=== PATIENT | female | born 1955 | race Caucasian/White ===

== ENCOUNTER 2019-05-21 10:35 | Emergency (ER) | payer BC ==
[~2019-05-21] VITALS: Ht 160 cm; Wt 94.1 kg
[2019-05-21] MEDS ORDERED: ATEN25TA PO (10:50)
[2019-05-21] MEDS ORDERED: LEVO50TA5 PO (10:50)
[2019-05-21 11:06] LABS: BASO % 0.5 % (0.0-1.0); EOS # 0.1 10^3/uL (0.0-0.5); EOS % 1.4 % (0.0-3.0); HEMATOCRIT 44.4 % (36.0-47.0); HEMOGLOBIN 14.4 g/dl (12.0-15.5); LYMPH # 1.4 10^3/uL (1.5-5.0); LYMPH % 17.7 % (24.0-44.0); MEAN CORPUSCULAR HEMOGLOBIN 30.5 pg (27.0-33.0); MEAN CORPUSCULAR HGB CONC 32.4 g/dl (32.0-36.5); MEAN CORPUSCULAR VOLUME 94.1 fl (80.0-96.0); MONO # 0.4 10^3/uL (0.0-0.8); MONO % 5.3 % (0.0-5.0); NEUTROPHILS # 5.9 10^3/uL (1.5-8.5); NEUTROPHILS % 74.7 % (36.0-66.0); PLATELET COUNT, AUTOMATED 195 10^3/uL (150-450); RED BLOOD COUNT 4.72 10^6/uL (4.00-5.40); WHITE BLOOD COUNT 7.9 10^3/uL (4.0-10.0)
[2019-05-21 11:16] LABS: PROTHROMBIN TIME 12.9 SECONDS (11.8-14.0)
[2019-05-21 11:32] LABS: BLOOD UREA NITROGEN 11 MG/DL (7-18); CALCIUM LEVEL 9.7 MG/DL (8.8-10.2); CARBON DIOXIDE LEVEL 29 MEQ/L (21-32); CHLORIDE LEVEL 101 MEQ/L (98-107); CK-MB VALUE MASS 3.3 NG/ML (<3.6); CPK CREATINE PHOSPHOKINASE 132 U/L (26-192); CREATININE FOR GFR 0.77 MG/DL (0.55-1.30); GLOMERULAR FILTRATION RATE > 60.0 (>45); GLUCOSE, FASTING 105 MG/DL (70-100); POTASSIUM SERUM 4.2 MEQ/L (3.5-5.1); SODIUM LEVEL 138 MEQ/L (136-145); TROPONIN I < 0.02 NG/ML (< 0.10)
--- NOTE | 2019-05-21 11:50 | REP ---
CT BRAIN WITHOUT IV CONTRAST: CT brain performed without IV contrast. Ventricles are normal in size and position with no midline shift or mass effect. Serrano-white differentiation is well maintained. There is no acute intracranial hemorrhage. There is no extra-axial fluid collection. There are minor vascular calcifications in the carotid siphons. IMPRESSION: No acute findings. No evidence of acute intracranial hemorrhage, midline shift, or mass effect. Electronically Signed by Roland Serrano MD 05/21/2019 02:37 P
[2019-05-21] MEDS ORDERED: ISOVUE-370 76% 100ML VIAL (Q9967) As Ordered ONE (13:13)
[2019-05-21] MEDS ORDERED: ATENOLOL 25 MG TAB PO ONE (13:15)
[2019-05-21] MEDS ORDERED: CLOPIDOGREL 75 MG TAB PO ONE (13:15)
[2019-05-21 13:18] VITALS: BP 195/81
[2019-05-21] MEDS ORDERED: ATEN50TA2 PO (13:22)
--- NOTE | 2019-05-21 13:36 | REP ---
MRI BRAIN: Multiple sequences obtained in the axial and saggital planes. Ventricles are normal in size and position with no midline shift or mass effect. There is no herniation. On the diffusion images, there are heterogeneous foci of increased signal in the posterior left parietal region in both the white matter and serrano matter, consistent with an area of acute infarct. More anterior in the left parietal region at the serrano-white junction, there is a small lacunar infarct. This is also acute. A small focus of gliosis is seen in the right parietal region somewhat peripherally. No other abnormal signal is seen in the brain, brainstem, or cerebellum. Seventh and eighth cranial nerve complexes appear unremarkable. IMPRESSION: Heterogeneous area of acute infarct in the posterior left parietal white matter and serrano matter. There is an acute lacunar infarct in the anterior left parietal region. Etiology may be watershed infarcts. Electronically Signed by Roland Serrano MD 05/21/2019 02:39 P
--- NOTE | 2019-05-21 13:45 | REP ---
MRA BRAIN: MRA brain is performed utilizing 3D [id number] imaging with MIP reconstructions. 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 Left middle cerebral artery is diffusely mildly thin with moderate focal stenosis of the more distal aspect of the middle cerebral artery in the region of the sylvian fissure extending for a length of 4 mm. The more peripheral branches of the left middle cerebral artery are diffusely attenuated. Right internal carotid artery is patent. Right middle cerebral artery is widely patent. Anterior communicating arteries are patent bilaterally. There is probably a small left posterior communicating artery. I do not see a right posterior communicating artery. Vertebral and basilar arteries are widely patent. Posterior cerebral arteries are widely patent. I see no aneurysm or AVM. 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 Anterior communicating arteries are patent. There may be a tiny left posterior communicating artery. There is mild diffuse thinning of the left middle cerebral artery with moderate stenosis of the distal aspect in the region of the sylvian fissure. The more peripheral branches of left middle cerebral artery are attenuated. Findings were discussed with Dr. Snyder at the time of the exam at approximately 12:45 p.m., 05/21/2019. Electronically Signed by Roland Serrano MD 05/21/2019 02:40 P
--- NOTE | 2019-05-21 14:19 | REP ---
CT ANGIOGRAM BRAIN: CT angiogram brain performed following the intravenous administration of 100 mL of Isovue-270. Saggital, coronal, and 3D MIP reconstruction images are performed. There is occlusion of the cervical portion of the left internal carotid artery. Superior extent of the occlusion is just proximal to the origin of the left ophthalmic artery. The distal end of the left internal carotid artery intracranial portion demonstrates mild to moderate diffuse narrowing. There is mild diffuse narrowing of the left middle cerebral artery. Anterior communicating arteries are patent as are the anterior cerebral arteries. There may be a tiny left posterior communicating artery. Vertebral and basilar arteries are widely patent. Posterior cerebral arteries are patent. IMPRESSION: Occlusion left internal carotid artery, superior extent is just proximal to the origin of the left ophthalmic artery. The more distal left internal carotid artery intracranial portion demonstrates mild to moderate diffuse narrowing. There is mild diffuse narrowing of the left middle cerebral artery. Electronically Signed by Roland Serrano MD 05/21/2019 02:41 P
--- NOTE | 2019-05-21 14:32 | REP ---
CT ANGIOGRAM OF THE NECK: CT angiogram neck performed following the intravenous administration of 100 mL of Isovue-370. Saggital, coronal, and 3D MIP reconstruction images are performed. There is mild atherosclerotic calcification of the aortic arch. Innominate artery demonstrates mild plaquing and narrowing. There is moderate plaquing and narrowing at the origin of the right vertebral artery. There is mild narrowing of the proximal right subclavian artery. The right carotid bulb and proximal internal carotid artery demonstrate moderate narrowing without severe stenosis. Left vertebral artery is patent. Left common carotid artery is patent, but there is significant plaquing in the carotid bulb with occlusion at the origin of the left internal carotid artery. The very distal aspect of the left internal carotid artery intracranial portion does demonstrate flow just inferior to the origin of the left ophthalmic artery with moderate diffuse narrowing of the distal end of the intracranial left ICA. There is moderate narrowing at the origin of left external carotid artery. Left subclavian artery demonstrates mild narrowing and plaquing proximally. IMPRESSION: There is occlusion at the origin of the left internal carotid artery extending to the intracranial portion of the left internal carotid artery just proximal to the origin of the left ophthalmic artery. Electronically Signed by Roland Serrano MD 05/21/2019 02:42 P
[2019-05-21 16:03] VITALS: BP 177/82
--- NOTE | 2019-05-22 20:00 | ECGEPIP ---
[facility] - ED Test Date: 2019-05-21 Pat Name: STAR LEMUS Department: Room: - Gender: Female [employer]: : 1955 Requested By: Kristel Lynn Order Number: [id number] Reading MD: Gualberto Malcolm Measurements Intervals Rice Rate: 60 P: -14 OH: 115 QRS: 30 QRSD: 94 T: 39 QT: 435 QTc: 435 Interpretive Statements SINUS RHYTHM WITH SHORT OH INTERVAL NONSPECIFIC ST T WAVE CHANGES NO PRIOR ECG FOR COMPARISON Electronically Signed on 05-22-2019 19:59:54 EDT by Gualberto Malcolm
== END 2019-05-21 16:06 | disposition short-term general hospital (02) ==
LOC: M ED 10:35
DX: I63.9 Cerebral infarction, unspecified (principal); I10 Essential (primary) hypertension; E03.9 Hypothyroidism, unspecified; G89.29 Other chronic pain; M54.6 Pain in thoracic spine; M54.2 Cervicalgia; Z79.890 Hormone replacement therapy; Z79.82 Long term (current) use of aspirin; Z88.0 Allergy status to penicillin; Z87.891 Personal history of nicotine dependence
CPT/HCPCS: 36415; 70450; 70496; 70498; 70544; 70551; 80048; 82550; 82553; 84484; 85025; 85610; 93005; 93041; 94760; 99291; Q9967

== ENCOUNTER → 2020-10-01 | Outpatient (REF) | payer MEDICARE ==
[~2020-10-01] MED LIST: ATEN25TA PO; ATEN50TA2 PO; LEVO50TA5 PO
== END ==
LOC: M WUC 15:44
PROVIDERS: ATTEND Physician Assistant
DX: R30.0 Dysuria (principal)

== ENCOUNTER → 2021-03-11 | Outpatient (CLI) | payer MEDICARE ==
[~2021-03-11] MED LIST changes: +LEVO100T5 PO; +PEPC1TAB5 PO; +PLAV1TAB2 PO; +PRAV40TA2 PO
--- NOTE | 2021-03-11 16:07 | RADONC.CN ---
Radiation Oncology Hx/Consult Radiation Oncology Consult Date of Service: Mar 11, 2021 Pt Identifier Shalini Solano is a 65 year old female with a history of metastatic bladder cancer to liver and bone. She is currently receiving doublet chemotherapy with Dr. Cohen at [facility] and is seen today for consideration of palliative RT to her right acetabulum/ischium metastasis which has been causing her pain. Diagnosis/Treatment History Oncologic History Patient presented in October 2020 with gross hematuria and underwent cystoscopy wh ich revealed ureteral obstruction and a nephrostomy tube was placed. Biopsies were positive for high grade urothelial cancer. Patient saw Dr. Garcia @ [facility] who proceeded with cystectomy without neoadjuvant chemotherapy. This was done on 11/22/20 which showed extensive cancer [id number] with positive margin. She was referred to [facility] oncology for consideration of adjuvant therapy. PET- CT on 01/10/21 showed diffuse metastases in the liver and numerous bone metastases including the right acetabulum and ischium and several thoracic vertebral bodies as well as likely persistent local tumor deposits in the cystectomy bed. Started gemcitabine/cisplatin in January 2021. Interval History Reports that since the start of chemotherapy her right hip/groin pain has improved from 10/10 constant, impairing mobility, to 3-4/10 allowing for ambulation, occasional flares to 5/10. She has been tolerating chemotherapy with only mild fatigue, some hair loss and minimal nausea. She has tended toward constipation in recent weeks. She has been using miralax and suppositories as needed with good effect. She has concerns today about her recently placed mediport incision taking a long time to heal. She worries it may be infected. Has been covering with a bandaid and using neosporin on it. Denies fevers, chills, purulent drainage from the site. Past Medical History: HTN Hypothyroid TIA (2019) Past Surgical History: Hysterectomy Cystectomy Tubal ligation Family History: Mother lung cancer Maternal grandmother colon cancer Social History: 60 pack year fromer smoker quit 2006 Never drinker Allergies / Meds Allergies: Coded Allergies: Penicillins (Verified Allergy, Unknown, 05/21/19) Home Meds Reported Medications Levothyroxine Sodium (LEVOTHYROXINE SODIUM) 100 Mcg Tablet, 1 TAB PO DAILY for 30 Days, #30 TAB 03/11/21 Famotidine (Pepcid) 20 Mg Tablet, 1 TAB PO BID for 30 Days, #60 TAB 03/11/21 Pravastatin Sodium (Pravastatin Sodium) 40 Mg Tablet, 1 TAB PO DAILY for 30 Days, #30 TAB 03/11/21 Clopidogrel Bisulfate (Plavix) 75 Mg Tablet, 1 TAB PO DAILY for 30 Days, #30 TAB 03/11/21 Atenolol (Atenolol) 50 Mg Tablet, 25 MG PO BID 05/21/19 Discontinued Reported Medications Levothyroxine Sodium (LEVOTHYROXINE SODIUM) 50 Mcg Tablet, 50 MCG PO DAILY 05/21/19 Review of Systems Constitutional: Reports: Fatigue; Denies: Chills, Fever, Weight Loss Eyes: Denies: Pain HEENT: Denies: Head Aches Skin: Denies: Rash Pulmonary: Denies: Dyspnea, Cough Cardiovascular: Denies: Chest Pain Gastrointestinal: Denies: Nausea, Vomiting, Abdominal Pain Hematologic: Denies: Bruising, Bleeding Excessively Endocrine: Denies: Cold Intolerance Musculoskeletal: Reports: Leg pain; Denies: Neck pain, Back pain Neurological: Denies: Weakness, Numbness Psych: Reports: Mood Normal Vital Signs Wt 178 lbs T 96.8 P 70 RR 20 BP 101/68 O2 97% Pain 3 Fatigue 5 General Exam: Alert, Cooperative, No Acute Distress Eye Exam: PERRLA, EOMI ENT EXAM: Atraumatic Neck Exam: Supple; Negative: Lymphadenopathy Chest Exam: Clear to auscultation, Normal air movement, Other (Right anterior chest port site incision, healing, dark eschar, 3 cm medial portion pale granulation tissue present. No purulent drainage or bleeding, minimal serous drainage on bandaird, no surrounding erythema or induration. Non-tender to palpation. ) Heart Exam: Rate Normal Abdomen Exam: Soft, Other (Urostomy in place); Negative: Tenderness Extremity Exam: Negative: Edema Skin Exam: Nl turgor and temperature Neuro Exam: Normal Gait (Favors right side as she walks), Normal Speech Psych Exam: Mental status NL Diagnostic and Laboratory Diagnostic Review Radiologic images, relevant labs and pathology reports were personally reviewed and discussed with Ms. Solano. Assessment and Plan Impression Ms. Solano is a 65 year old female with a history of metastatic bladder cancer to liver and bone. She is currently receiving doublet chemotherapy with Dr. Cohen at [facility] and is seen today for consideration of palliative RT to her right acetabulum/ischium metastasis which has been causing her pain. Stage Bladder cancer [id number] stage IV Performance Status ECOG 1 Plan We had an extensive discussion with Ms. Solano regarding the diagnosis at hand and available therapeutic options. She asked me to look at her port incision, I see no signs of infection there, I encouraged her to keep the site covered and clean until fully healed. I will let Dr. Cohen know about this by email. She is tolerating chemotherapy well by her report. She has had a significant decrease in pain in the right groin since starting chemo, I assured her this is the first best clinical sign that the treatment is working well. She is still symptomatic from the lesion however and would like to pursue measures of further pain control, especially because she was not able to tolerate narcotic pain medications. I reviewed her imaging and the right ischium/acetabulum metastasis is the certain cause of her pain. This is amenable to palliative RT. We discussed 30 Gy in 10 fractions as a reasonable schedule for a good performance status patient with unifocal pain in a weight bearing bone. She agreed to proceed. We discussed possible side effects of treatment including mild fatigue and possible loose bowel movements. We can work around her existing chemotherapy schedule. We discussed the logistics of receiving radiation therapy in detail including the need for a 1-time planning session. This can occur in the next week. After discussing the risks, benefits and alternatives to radiation therapy, Ms. Solano was amenable to pursuing radiotherapy. All questions were answered to the patient's satisfaction. We instructed the patient that if there were any questions,concerns or changes in clinical status in the interim to contact us. Recommendations Palliative RT to the right acetabulum/ischium metastasis 30 Gy in 10 fractions Simulation in the next week Billing Statement Total time of [33] minutes was spent preparing for the visit [2], obtaining HPI [5], examining the patient [3], reviewing diagnostic tests [5], discussing management options [7], coordinating care [3], and writing this note [8]. ABILIO FARRIS MD Mar 11, 2021 16:05
== END ==
LOC: M ONCR 13:06
PROVIDERS: ATTEND General Practice
DX: C67.9 Malignant neoplasm of bladder, unspecified (principal); C78.7 Secondary malignant neoplasm of liver and intrahepatic bile duct; C79.51 Secondary malignant neoplasm of bone; C03.9 Malignant neoplasm of gum, unspecified; I10 Essential (primary) hypertension; Z79.890 Hormone replacement therapy; Z79.899 Other long term (current) drug therapy; Z86.73 Personal history of transient ischemic attack (TIA), and cerebral infarction without residual deficits; Z87.891 Personal history of nicotine dependence; Z88.0 Allergy status to penicillin; Z90.710 Acquired absence of both cervix and uterus; Z92.21 Personal history of antineoplastic chemotherapy; Z98.51 Tubal ligation status

== ENCOUNTER 2021-03-20 09:34 | Outpatient (RCR) | payer MEDICARE | END 2021-03-25 | LOC: M ONCR 09:34 | PROVIDERS: ATTEND General Practice | DX: C79.51 Secondary malignant neoplasm of bone (principal) ==

== ENCOUNTER 2021-04-10 08:14 | Outpatient (RCR) | payer MEDICARE | END 2021-04-24 | LOC: M ONCR 08:14 | PROVIDERS: ATTEND General Practice | DX: C79.51 Secondary malignant neoplasm of bone (principal) ==

== ENCOUNTER → 2021-07-08 | Outpatient (CLI) | payer MEDICARE ==
--- NOTE | 2021-07-08 10:34 | RADONC ---
Radiation Oncology Hx/FUP Radiation Oncology Hx/FUP Date of Service: Jul 08, 2021 Pt Identifier Shalini Solano is a 66 year old female seen for a followup visit today at the department of radiation oncology for a history of metastatic bladder cancer to liver and bone. She received palliative RT to the right acetabulum for pain control 30 Gy in 10 fractions completed 03/26/21-04/10/21. She continues on immunotherapy with Dr. Cohen @ [facility]. Diagnosis/Treatment History Oncologic History Patient presented in October 2020 with gross hematuria and underwent cystoscopy which revealed ureteral obstruction and a nephrostomy tube was placed. Biopsies were positive for high grade urothelial cancer. Patient saw Dr. Garcia @ [facility] who proceeded with cystectomy without neoadjuvant chemotherapy. This was done on 11/22/20 which showed extensive cancer pT4aN2 with positive margin. She was referred to [facility] for consideration of adjuvant therapy. PET- CT on 01/10/21 showed diffuse metastases in the liver and numerous bone metastases including the right acetabulum and ischium and several thoracic vertebral bodies as well as likely persistent local tumor deposits in the cystectomy bed. Started gemcitabine/cisplatin in January 2021. Received 30 Gy in 10 fractions to the right acetabulum 03/26/21-04/10/21. Continued on maintenance Avelumab April-. Recent data: 07/07/21 CT abdomen pelvis IMPRESSION: 1. Interval increase in size and number of metastatic hepatic lesions with worsened right portal vein thrombus, multifocal intrahepatic biliary ductal dilation, and mass effect to right hepatic vein. 2. Stable appearance of sclerotic lesions in the T11, T12, right mid and posterior iliac bone, and right superior pubic ramus with pathologic fracture. No definite new osseous lesion. 3. No adenopathy 4. pyloric wall thickening. Interval History Shalini has no pain in the right hip. She does note increasing fatigue and some nausea worsening recently as well. Has occasional fleeting pains in the RUQ, not serious. No pain elsewhere in the body. She is seeing Dr. Cohen on Wednesday. Appetite and weight stable. Current Therapy Avelumab Stage Bladder cancer [id number] stage IV Social History: 60 pack year fromer smoker quit 2006 Never drinker Allergies / Meds Allergies: Coded Allergies: Penicillins (Verified Allergy, Unknown, 05/21/19) Home Meds Reported Medications Levothyroxine Sodium (LEVOTHYROXINE SODIUM) 100 Mcg Tablet, 1 TAB PO DAILY for 30 Days, #30 TAB 03/11/21 Famotidine (Pepcid) 20 Mg Tablet, 1 TAB PO BID for 30 Days, #60 TAB 03/11/21 Pravastatin Sodium (Pravastatin Sodium) 40 Mg Tablet, 1 TAB PO DAILY for 30 Days, #30 TAB 03/11/21 Clopidogrel Bisulfate (Plavix) 75 Mg Tablet, 1 TAB PO DAILY for 30 Days, #30 TAB 03/11/21 Atenolol (Atenolol) 50 Mg Tablet, 25 MG PO BID 05/21/19 Review of Systems Review of Systems Constitutional: Reports: Fatigue; Denies: Chills, Fever, Weakness, Weight Loss Pulmonary: Denies: Dyspnea Cardiovascular: Denies: Chest Pain Gastrointestinal: Reports: Nausea, Abdominal Pain; Denies: Constipation, Hematochezia Musculoskeletal: Denies: Neck pain, Back pain, Joint pain Neurological: Denies: Weakness, Numbness Psych: Reports: Mood Normal Physical Examination Vital Signs Wt 184 lbs T 96.7 P 55 RR 16 BP 122/74 O2 99 Pain 1 Fatigue 9 General Exam: Alert, Cooperative, Mild Distress Eye Exam: PERRLA, EOMI; Negative: Sclera icteric ENT EXAM: Atraumatic Neck Exam: Supple Chest Exam: Clear to auscultation Heart Exam: Rate Normal Abdomen Exam: Soft; Negative: Tenderness Extremity Exam: Negative: Edema Skin Exam: Nl turgor and temperature Neuro Exam: Normal Gait, Normal Speech, Cranial Nerves 3-12 NL Psych Exam: Mental status NL, Anxiety Diagnostic and Laboratory Diagnostic Review Radiologic images, relevant labs and pathology reports were personally reviewed and discussed with Ms. Solano. Assessment and Plan Impression Assessment Ms. Solano is a 66 year old female with a history of metastatic bladder cancer to liver and bone. She received palliative RT to the right acetabulum for pain control 30 Gy in 10 fractions completed 03/26/21-04/10/21. She continues on immunotherapy with Dr. Cohen @ [facility]. She has had a complete response in the right hip pain. She does have some RUQ pain and nausea ongoing which could be from her progressive liver disease. I obtained the CT scan results from [facility] and reviewed them with her showing progression in the liver, and stable disease in bone. She was tearful at this news. I discussed with her that a change in systemic therapy is warranted based on the progression and that she may be appropriate for liver-directed therapy, which could be facilitated @ [facility]. In particular because there is portal vein tumor thrombus present, she may be better served by consideration of Y90 as opposed to TACE. I will write Dr. Cohen about this possibility. Shalini can see me back in 6 months, or sooner if palliative EBRT needs arise. Performance Status ECOG 1 Plan Follow up in 6 months Patient should be considered for liver-directed therapies and/or change in systemic therapy based on progression Will write to Dr. Cohen about this Ms. Solano was encouraged to call with questions or concerns in the interim period. Billing Statement Total time of [34] minutes was spent preparing for the visit [2], obtaining HPI [5], examining the patient [2], reviewing diagnostic tests [6], discussing management options [6], coordinating care [6], and writing this note [7]. ABILIO FARRIS MD Jul 08, 2021 10:34
== END ==
LOC: M ONCR 08:58
PROVIDERS: ATTEND General Practice
DX: C79.51 Secondary malignant neoplasm of bone (principal); C67.9 Malignant neoplasm of bladder, unspecified; Z92.3 Personal history of irradiation; Z87.891 Personal history of nicotine dependence; Z88.0 Allergy status to penicillin; Z79.899 Other long term (current) drug therapy

== ENCOUNTER → 2021-10-06 | Outpatient (CLI) | payer MEDICARE, BC ==
[~2021-10-06] MED LIST changes: +GASTROGRAFIN SOLUTION 30ML (Q9963) As Ordered ONE; +ISOVUE-370 76% 100ML VIAL As Ordered ONE
== END ==
LOC: M RAD 11:39
DX: C67.9 Malignant neoplasm of bladder, unspecified (principal)
CPT/HCPCS: 74177; J1642; Q9963; Q9967